=== PATIENT | male | born 1960 | race Caucasian/White ===

== ENCOUNTER → 2019-07-28 | Outpatient (CLI) | payer OTHER ==
[~2019-07-28] MED LIST: HYDACE5 PO; METHOTREXATE 10 MG; NAPR500; PRED20 PO; PRED5; RXHYDACE PO
[2019-07-28 12:46] LABS: Alanine Aminotransfer (ALT/SGP 38 U/L (12-78); Albumin, Blood 4.3 g/dL (3.4-5.0); Albumin/Globulin Ratio 1.3 (0.8-1.8); Alk Phos 61 U/L (40-126); Anion Gap 11 mmol/L (6-16); Aspartate Aminotrans (AST/SGOT 41 U/L (12-37); Bilirubin, Total 0.6 mg/dL (0.1-1.0); Blood Urea Nitrogen 25 mg/dL (8-24); Bun/Creatinine Ratio 18.2 (12.0-20.0); CHOL/HDL RATIO 6.2; CO2, Blood 24 mmol/L (21-32); Calcium, Blood 9.3 mg/dL (8.5-10.1); Chloride, Blood 102 mmol/L (98-108); Cholesterol 242 mg/dL (50-200); Creatinine, Blood 1.37 mg/dL (0.60-1.20); Globulin, Blood 3.3 g/dL (2.2-4.0); Glomerular Filtration Rate 54 (60-); Glucose, Blood 99 mg/dL (70-99); HDL Cholesterol 39 mg/dL (>39); Low Density Lipoprotein Chol 157 mg/dL (<110); Potassium, Blood 4.3 mmol/L (3.5-5.5); Sodium, Blood 137 mmol/L (136-145); Total Protein, Blood 7.6 g/dL (6.4-8.2); Triglycerides 231 mg/dL (30-160); Very Low Density Lipoprot Chol 46 mg/dL (6-32)
== END | disposition home or self-care (01) ==
LOC: LAB SHORT 12:13 → LAB EV 12:13
PROVIDERS: Physician Assistant
DX: E78.2 Mixed hyperlipidemia (principal); R73.01 Impaired fasting glucose
CPT/HCPCS: 36415; 80053; 80061; 83036

== ENCOUNTER → 2021-12-28 | Outpatient (CLI) | payer OTHER | END | disposition home or self-care (01) | LOC: LAB SHORT 12:17 → LAB 12:17 | DX: N39.0 Urinary tract infection, site not specified (principal) | CPT/HCPCS: 87086 ==

== ENCOUNTER 2024-06-26 07:45 | Day surgery (SDC) | payer OTHER ==
[~2024-06-26] VITALS: Ht 182.9 cm; Wt 99.7 kg
[~2024-06-26 07:45] MED LIST changes: +Lactated Ringer's 1,000 ML IV ONE; +propofoL 50 ML IV ONE
[2024-06-26] MEDS ORDERED: ALLO300 (09:01)
[2024-06-26] MEDS ORDERED: ALLO100 (09:01)
[2024-06-26] MEDS ORDERED: TERBINAFINE HC250 MG (09:02)
[2024-06-26] MEDS ORDERED: ATOR40TA (09:02)
[2024-06-26] MEDS ORDERED: IRBE150 (09:02)
[2024-06-26] MEDS ORDERED: Lactated Ringer's 1,000 ML IV ONE (09:38)
[2024-06-26 14:23] VITALS: BP 122/83
== END 2024-06-26 10:55 | disposition home or self-care (01) ==
LOC: ORSCSDS 07:45
PROVIDERS: Internal Medicine Gastroenterology
PROC: 0DBN8ZX Excision of Sigmoid Colon, Via Natural or Artificial Opening Endoscopic, Diagnostic (ICD-10-PCS; principal; 2024-06-26 09:15)
DX: Z12.11 Encounter for screening for malignant neoplasm of colon (principal); Z86.0100 Personal history of colon polyps, unspecified; D12.5 Benign neoplasm of sigmoid colon; K63.5 Polyp of colon; Z79.899 Other long term (current) drug therapy
CPT/HCPCS: 88305; J2704; J7120